=== PATIENT | male | born 1960 | race Caucasian/White ===

== ENCOUNTER 2017-02-10 21:06 | Inpatient (IN) ==
[2017-02-10 22:42] LABS: MANUAL DIFF NEEDED? NO
[2017-02-10 22:58] LABS: BASO% 0.1 % (0.0-0.8); HEMOGLOBIN 9.8 g/dL (14.0-18.0); IMM GRAN# 0.03 X1000 (0.0-0.04); IMM GRAN% 0.3 % (0.0-0.5); LYMPH# 0.66 X1000 (1.2-3.4); LYMPH% 7.3 % (20.5-51.1); MCHC 36.3 g/dL (33-37); MCV 99.3 FL (81-99); MONO% 12.2 % (1.7-9.3); MPV 9.6 FL (7.4-10.4); NEUT% 80.1 % (42.2-75.2); PLT 173 X1000 (130-400); RBC 2.72 XMIL (4.7-6.1)
[2017-02-10 23:08] LABS: ALBUMIN 3.7 g/dL (3.5-5.0); POTASSIUM 4.2 mmol/L (3.5-5.1); TOTAL BILIRUBIN 1.29 mg/dL (0.20-1.00); TOTAL PROTEIN 8.4 g/dL (6.3-8.3)
[2017-02-10] MEDS ORDERED: MORPHINE IV ONE (23:45)
[2017-02-10] MEDS ORDERED: NS 1,000 ML IV ONE (23:45)
[2017-02-10] MEDS ORDERED: VANCOMYCIN 1 GM/NS 1 GM/250 ML IVPB IV ONE (23:53)
[2017-02-11] MEDS ORDERED: ZOSYN 3.375 GM/NS 3.375 GM/50 ML IVPB IV ONE (00:46)
[2017-02-11] MEDS ORDERED: GENTAMICIN 0.3% OPH DROPS BOTH EYES ONE (00:51)
--- NOTE | 2017-02-11 00:53 | PROVIDER DOCUMENTATION ---
HPI-Rash/Wound/ReCheck - General Chief Complaint: Extremity Pain Stated Complaint: FOOT PAIN Time Seen by Provider: 02/10/17 22:45 Source: patient Allergies/Adverse Reactions: Allergies Allergy/AdvReac Type Severity Reaction Status Date / Time No Known Allergies Allergy Verified 02/11/17 00:04 Home Medications: Home Medication List Medication Instructions Recorded Confirmed Last Taken Type NK [No Home Medications] 02/11/17 02/11/17 Unknown History - History of Present Illness-Dermatology Nature of Presenting Problem: PT STS HE IS HOMELESS AND HAS HAD NO MEDICAL CARE IN YEARS. C/O GETTING HIS FEET WET A COUPLE OF DAYS AGO AND NOT REMOVING HIS SHOES FOR 2 DAYS, CAUSING REDNESS AND SEVERE PAIN TO HIS FEET. ALSO STS HE HAS HAD DIARRHEA FOR 3 DAYS. DENIES N/V, FEVER, OR SOB. ALSO COMPLAINS OF RIGHT EYE "MATTING CLOSED" WITH DISCHARGE. Location: reports: feet Quality: reports: painful Severity: reports: severe Onset/Duration: reports: 3 days ago Timing: reports: still present, getting worse Context/Associated Symptoms: reports: edema, lesion, tender area. denies: fever Identifiable cause?: Yes Locality of Occurance: Other (OUTDOORS) Similar Symptoms Previously?: No Recently seen or treated by another doctor?: No Review of Systems - Adult - REVIEW OF SYSTEMS - ADULT Constitutional: reports: no symptoms reported. denies: chills, fever, fatique Eyes: reports: see HPI, discharge, redness. denies: blurred vision, double vision Ears, Nose, Mouth & Throat: reports: no symptoms reported. denies: tinnitus, sinus problem Cardiovascular: reports: no symptoms reported. denies: chest pain, palpitations , syncope Respiratory: reports: no symptoms reported. denies: cough, shortness of breath Gastrointestinal: reports: see HPI, diarrhea. denies: abdominal pain, hematemesis, constipation, nausea, rectal bleeding, vomiting Genitourinary: reports: no symptoms reported. denies: dysuria, frequency, flank pain, hematuria, urgency Musculoskeletal: reports: no symptoms reported. denies: muscle aches, muscle weakness Integumentary: reports: see HPI, rash, skin sores/ulcer Neurological: reports: no symptoms reported. denies: dizziness/vertigo, headache/migraines, loss of balance, syncope Psychiatric: reports: no symptoms reported Endocrine: reports: no symptoms reported Hematologic/Lymphatic: reports: no symptoms reported Allergic/Immunologic: reports: no symptoms reported All Other Systems: Reviewed and Negative Past History - Adult - PAST MEDICAL HISTORY-ADULT Review of Records: reports: Old Records Reviewed, Nursing Assessment Review, Medications Reviewed, Social history reviewed & non-contributory. Major Childhood Illnesses: reports: denies history Cardiovascular: reports: denies history Respiratory: reports: denies history Gastrointestinal: reports: denies history Genitourinary: reports: denies history Musculoskeletal: reports: denies history Neurological: reports: denies history Psychiatric: reports: other (ETOH abuse) Endocrine/Immune: reports: denies history Other Conditions: reports: denies history - PRIOR SURGERIES/PROCEDURES Surgical/Procedure History: reports: other (eye sx as a child ) - PRIOR HOSPITALIZATIONS Prior Hospitalizations: reports: none - IMMUNIZATION STATUS Childhood Immunizations: UTD Flu Vaccine: NUTD - FAMILY HISTORY Family History: reviewed, not pertinent - SOCIAL HISTORY Smoking: denies Physical Exam-General - PHYSICAL EXAM-ADULT Initial Vital Signs Reviewed: Yes - CONSTITUTIONAL General Appearance: appears well, alert, mild distress - EYES Eyes: PERRL/EOMI, pink conjunctivae (BILATERALLY), conjuctival exudate (THICK WHITE FROM RT EYE) - HEAD, EARS, NOSE, MOUTH & THROAT HENMT: normocephalic/atraumatic, moist mucous membranes, normal ENT inspection - NECK Neck: non-tender, full range of motion, supple, normal inspection - RESPIRATORY Respiratory: chest non-tender, lungs clear, normal breath sounds, no pleuratic chest pain, no respiratory distress, no accessory muscle use. negative: crackles, wheezing - CARDIOVASCULAR Cardiovascular: normal peripheral pulses, regular rate, rhythm - GASTROINTESTINAL (ABDOMEN) Abdominal Exam: normal bowel sounds, non tender, soft, no organomegaly, no pulsatile mass. negative: distended, guarding, tenderness - LYMPHATIC Lymphatic: no adenopathy - MUSCULOSKELETAL Extremity: normal range of motion, non-tender Peripheral Pulses: dorsalis-pedis (R): 2+, dorsalis-pedis (L): 2+ - SKIN Integumentary: normal color, normal turgor, warm/dry, erythema (BILATERAL FEET) , tenderness (BILATERAL FEET) - NEUROLOGIC Neurologic: grossly normal, no motor/sensory deficits - PSYCHIATRIC Psych/Mental Status: normal mood/affect, oriented x 3, disheveled Progress - PLAN OF CARE/RESULTS Progress/Plan/Lab Results: Vital Signs - 8 hr 02/10/17 21:08 02/11/17 00:25 Temperature 99.5 F 98.5 F Pulse Rate 118 H 96 H Respiratory Rate 16 20 Blood Pressure 156/102 125/77 O2 Sat by Pulse Oximetry 100 100 Laboratory Results - last 24 hr 02/10/17 02/10/17 02/10/17 22:23 22:23 22:23 WBC 9.03 RBC 2.72 L Hgb 9.8 L Hct 27.0 L MCV 99.3 H MCH 36.0 H MCHC 36.3 RDW Std Deviation 11.0 L Plt Count 173 MPV 9.6 Immature Gran % (Auto) 0.3 Neut % (Auto) 80.1 H Lymph % (Auto) 7.3 L [place] % (Auto) 12.2 H Eos % (Auto) 0.0 Baso % (Auto) 0.1 Immature Gran # (Auto) 0.03 Neut # (Auto) 7.23 H Lymph # (Auto) 0.66 L [place] # (Auto) 1.10 H Eos # (Auto) 0.00 Baso # (Auto) 0.01 Sodium 125 L Potassium 4.2 Chloride 87 L Carbon Dioxide 22 L Anion Gap 16 BUN 15 Creatinine 1.6 H Estimated GFR/1.73 m2 45 BUN/Creatinine Ratio 9 Glucose 94 Calculated Osmolality 252 Calcium 9.0 Total Bilirubin 1.29 H AST 50 H ALT 36 Alkaline Phosphatase 111 Total Protein 8.4 H Albumin 3.7 Globulin 4.7 Albumin/Globulin Ratio 0.8 Plasma Lactate 2.0 Orders Category Date Time Status CHEST-1 VIEW [RAD] Stat Exams 02/10/17 23:50 Taken BLOOD CULTURE [BLDCUL] Stat Lab 02/10/17 22:23 Results CBC WITH ELECTRONIC DIFF [HEME] Stat Lab 02/10/17 22:23 Completed COMPREHENSIVE METABOLIC PANEL [CHEM] Stat Lab 02/10/17 22:23 Completed LACTATE, PLASMA [CHEM] Stat Lab 02/10/17 22:23 Completed 0.9% Sodium Chloride Inj [Ns] 1,000 ml Med 02/10/17 23:45 Active IV 125 mls/hr Gentamicin 0.3% Oph Drops Med 02/11/17 00:51 Discontinued 1 ml BOTH EYES NOW ONE Morphine Med 02/10/17 23:45 Discontinued 4 mg IV NOW ONE Piperacil/Tazobact 3.375 gm/Ns [Zosyn 3.375 gm/Ns] Med 02/11/17 00:46 Discontinued 3.375 gm in 50 ml IV NOW Vancomycin 1 gm/Ns Med 02/10/17 23:53 Discontinued 1 gm in 250 ml IV NOW Result Diagrams: 02/10/17 22:23 02/10/17 22:23 - REASSESSMENT Reassessment #1 Time Reassessed: 00:30 (DISCUSSED PT WITH DR. SNYDER WHO AGREES WITH DECISION TO CONSULT HOSPITALIST FOR ADMISSION.) Status: unchanged - CONSULTS/PCP/HOSPITALIST Notification #1 *Consult/PCP/Hospitalist*: DR. HADLEY Time Discussed: 00:50 Reason/Comments: DISCUSSED ADMISSION FOR HYPONATREMIA, CELLULITIS, ANEMIA Consult Disposition: Will see in ED Departure - Departure Date of Disposition Decision: 02/11/17 Time of Disposition Decision: 00:50 DIAGNOSIS: Hyponatremia Cellulitis Qualifiers: Site of cellulitis: extremity Site of cellulitis of extremity: lower extremity Laterality: unspecified laterality Qualified Code(s): L03.119 - Cellulitis of unspecified part of limb Disposition: ADMITTED INPATIENT 09 Certified Medical Emergency: Emergent Condition: Stable Referrals and Follow-Ups: None,PCP [Primary Care Provider] - - Critical Care Note This patient required my direct & personal management of CC.: No Attestation - Physician/ JOSIAH Attestation Patient care was provided by Advanced Practice Provider:: Yes Advanced Practice Provider:: Bhargavi Byrd Advanced Practice Provider documentation review:: The Mid-level provider documentation, treatment plan and medical decision making was reviewed by the physician who agrees with all treatment and medical decision making by the MLP.
[2017-02-11] MEDS ORDERED: ZOFRAN IV PRN (03:19)
[2017-02-11] MEDS ORDERED: VANCOMYCIN IV PER PHARMACY MISC SCH (03:19)
[2017-02-11] MEDS ORDERED: TYLENOL PO PRN (03:19)
[2017-02-11] MEDS ORDERED: MORPHINE IV PRN (03:19)
[2017-02-11] MEDS ORDERED: VANCOMYCIN 500 MG/NS 500 MG/100 ML IVPB IV ONE (04:00)
[2017-02-11] MEDS ORDERED: ROCEPHIN 1 GM/NS 1 GM/50 ML IVPB IV SCH (04:00)
--- NOTE | 2017-02-11 04:25 | HISTORY AND PHYSICAL ---
PRIMARY CARE PHYSICIAN: None. CHIEF COMPLAINT: Bilateral feet swelling and tenderness and eye redness. HISTORY OF PRESENTING ILLNESS: A 56-year-old, homeless male who apparently states that he got some new shoes or so and put them on without socks and his feet were hurting. He subsequently had come to the emergency department where his feet had moderate skin breakdown and seemed infected. He also had some redness in both eyes, but greater in the right eye. He was evaluated and his symptoms were consistent with cellulitis on his feet and due to his presenting symptoms, it was thought that he would need hospitalization for further management. At the time of my examination, he denied any headache, fever, chills, chest pain, shortness of breath, hemoptysis or weight changes. States that his feet are hurting. PAST MEDICAL HISTORY: None. PAST SURGICAL HISTORY: Left eye surgery. ALLERGIES: No known drug allergies. CURRENT MEDICATIONS: None. SOCIAL HISTORY: He denies any smoking. Admits to social alcohol use. Denies any illicit drug use. FAMILY HISTORY: No history of coronary disease. REVIEW OF SYSTEMS: Twelve point review of systems is as listed in the HPI. Other systems negative. PHYSICAL EXAMINATION: GENERAL: Moderately disheveled male. He is without any respiratory distress. VITAL SIGNS: Temperature 99.5 degrees, pulse 118, respirations 16, blood pressure 156/102. Saturating 100%. HEENT: Atraumatic, normocephalic. Right eye has moderate erythema. NECK: Supple. CHEST: Clear to auscultation. CARDIOVASCULAR: Regular rate and rhythm. ABDOMEN: Soft. Positive bowel sounds. EXTREMITY: There is some mild edema in bilateral lower extremities and also erythema. : No bladder distention. SKIN: Warm. LABORATORIES AND STUDIES: Sodium 125, potassium 4.2, chloride 87, CO2 22, BUN is 15, creatinine 1.6, glucose is 94. WBC is 9.03, hemoglobin 9.8, hematocrit 27.0, platelets 173 ,000. ASSESSMENT: 1. A 56-year-old male, basically homeless had put on a pair of shoes without socks or so. It seems that he has moderate skin breakdown on his feet and there is moderate erythema consistent with cellulitis. The patient will need hospitalization for further management. 2. Bilateral feet cellulitis. 3. Right eye conjunctivitis. 4. Hyponatremia. 5. Anemia, unspecified. PLAN: 1. We will admit patient to medical floor with telemetry. 2. We will check blood cultures. Start patient on IV antibiotics. 3. We will give the patient appropriate eyedrops. 4. Continue with IV fluid hydration. 5. We will monitor his renal function closely also. 6. We will do iron studies. 7. We will put patient on DVT prophylaxis with SCDs if he can tolerate it. 8. We will continue to follow and reassess. cc: Cresencio Cervantes MD MTDD
[2017-02-11 06:45] LABS: IRON SATURATION 27 %; TIBC 160 ug/dL; TOTAL IRON 43 ug/dL (53-167); UNBOUND IRON 117 ug/dL (112-346)
--- NOTE | 2017-02-11 07:19 | Diag Imaging Result Doc PS360 ---
EXAM: CHEST-1 VIEW HISTORY: ANEMIA, INFECTION TECHNIQUE: Erect AP portable at 0000 COMMENT: There are granulomata in the left upper lobe. There is no evidence of acute cardiac or pulmonary disease. Compared to 07/12/2015 there is been no significant change. IMPRESSION: No acute disease. Electronically signed by Tanvir Lazaro 02/11/2017 7:17 AM
[2017-02-11] MEDS ORDERED: CALMOSEPTINE OINTMENT TOP PRN (08:21)
[2017-02-11] MEDS: GENTAMICIN 0.3% OPH DROPS BOTH EYES SCH ×2 (08:51→21:51)
[2017-02-11] MEDS: NS 1,000 ML IV SCH (08:51)
--- NOTE | 2017-02-11 10:26 | EKG Report ---
Test Performed on : 02/11/2017 07:29:07 AM Test Reason : Afib vs ST Blood Pressure : / mmHG Vent. Rate : 088 BPM Atrial Rate : 110 BPM P-R Int : 000 ms QRS Dur : 082 ms QT Int : 374 ms P-R-T Axes : 000 070 067 degrees QTc Int : 452 ms Atrial fibrillation. with premature ventricular or aberrantly conducted complexes. Abnormal ECG When compared with ECG of 12-JUL-2015 18:29, Atrial fibrillation. has replaced Sinus rhythm. Confirmed by Jos Garay MD ([id number]) on 02/11/2017 1:03:03 PM
[2017-02-11] MEDS ORDERED: CARDIZEM 100 MG/NS 100 MG/100 ML IVPB IV SCH (13:47)
[2017-02-11] MEDS: MAXIPIME 1 GM/NS 1 GM/50 ML IVPB IV SCH (14:37)
--- NOTE | 2017-02-11 16:31 | CONSULTATION ---
DATE OF CONSULTATION: 02/11/2017 CARDIOLOGY CONSULT NOTE: IMPRESSION: 1. Atrial fibrillation, duration unknown. Patient asymptomatic from a cardiovascular standpoint. 2. Currently admitted with cellulitis of both feet and right eye. 3. Regular daily alcohol use. Quantity vague. 4. Homeless. 5. Anemia, etiology not clear. 6. Hyponatremia. RECOMMENDATIONS: 1. Utilize beta-samreen for rate control. 2. Echocardiography. 3. Check TSH. 4. Evaluate anemia. HISTORY: This 56-year-old, white male with no prior cardiovascular history was admitted to the emergency room for management of cellulitis. He is unaware of any previous cardiac problems. He is homeless. He drinks a vague amount of beer daily. Recently acquired some shoes that perhaps did not fit well. He developed bilateral foot pain and redness. He also complained of redness in his right eye. He came to the emergency room and was felt to have cellulitis. He has been admitted and started on intravenous antibiotics. ECG demonstrated atrial fibrillation. He denies any palpitations, chest discomfort, or dyspnea. PAST MEDICAL HISTORY: 1. Negative for hypertension, negative for diabetes, and negative for hypercholesterolemia. 2. Unspecified left eye surgery related to traumatic injury. ALLERGIES: No known drug allergies. MEDICATIONS: He is on no medications prior to admission. SOCIAL HISTORY: He is homeless. He does not smoke. He drinks a vague amount of beer on a daily basis. FAMILY HISTORY: Negative for coronary disease. REVIEW OF SYSTEMS: Pulmonary: Negative. Gastrointestinal: Negative. Constitutional: Negative. Remaining review of systems negative/noncontributory with 14 total systems reviewed. PHYSICAL EXAMINATION: General Appearance: A middle-aged male in no distress. Vital Signs: As recorded are stable. HEENT Exam: Atraumatic, normocephalic. Mucous membranes moist. Neck: Supple without jugular venous distention. No carotid bruits. Chest: Clear to auscultation. Cardiac Exam: Reveals an irregular rate and rhythm without appreciable murmur or gallop. Abdomen: Soft, nontender. Bowel sounds are normal. Extremities: Without edema. There is striking erythema of both feet. Neurologic Exam: Reveals him to be alert and fully oriented. Speech is fluent. Moves all 4 extremities equally well. Skin: Warm and dry. DIAGNOSTIC DATA: ECG demonstrates atrial fibrillation with occasional premature ventricular aberrantly conducted complex. cc: Ty Flynn MD
[2017-02-11] MEDS ORDERED: LIBRIUM PO ONE (17:30)
[2017-02-11] MEDS: LOPRESSOR PO SCH (21:51)
[2017-02-12] MEDS: NS 1,000 ML IV SCH ×3 (00:04→15:11)
[2017-02-12] MEDS: MAXIPIME 1 GM/NS 1 GM/50 ML IVPB IV SCH ×2 (02:29→14:20)
[2017-02-12] MEDS ORDERED: VANCOMYCIN 1,400 MG in NS 250 ML IV SCH (04:00)
[2017-02-12] MEDS: LOPRESSOR PO SCH ×3 (05:31→20:11)
[2017-02-12 06:09] LABS: MANUAL DIFF NEEDED? NO
[2017-02-12 06:26] LABS: BASO% 0.2 % (0.0-0.8); EOS# 0.06 X1000 (0.0-0.7); EOS% 1.2 % (0.0-10.0); HEMATOCRIT 23.5 % (42.0-52.0); HEMOGLOBIN 8.2 g/dL (14.0-18.0); LYMPH# 0.86 X1000 (1.2-3.4); LYMPH% 17.7 % (20.5-51.1); MCH 35.3 PG (27-31); MCHC 34.9 g/dL (33-37); MCV 101.3 FL (81-99); MONO# 0.64 X1000 (0.11-0.59); MONO% 13.1 % (1.7-9.3); MPV 9.5 FL (7.4-10.4); NEUT% 67.8 % (42.2-75.2); PLT 176 X1000 (130-400); RBC 2.32 XMIL (4.7-6.1)
[2017-02-12 06:30] LABS: AGAP 11; BUN 10 mg/dL (8-22); CALCIUM 8.1 mg/dL (8.8-10.2); CHLORIDE 97 mmol/L (98-107); COSMO 259; MAGNESIUM 1.2 mg/dL (1.5-2.7); POTASSIUM 3.1 mmol/L (3.5-5.1); SODIUM 130 mmol/L (136-145); TCO2 22 mmol/L (25-35)
--- NOTE | 2017-02-12 07:01 | ECHO REPORT ---
ORDER DATE: 02/11/2017 INTERPRETING PHYSICIAN: Dr. Aguiar REQUESTING PHYSICIAN: Dr. Leger. CLINICAL INDICATIONS: A 56-year-old male with new onset atrial fibrillation. M-MODE MEASUREMENTS: Right ventricle: 2.8 cm. Left ventricle end diastole: 4.5 cm. Left ventricle end systole: 3.2 cm. Posterior wall: 0.9 cm. Interventricular septum: 0.9 cm. Left atrium: 4.7 cm. Aortic root: 3.1 cm. SUMMARY OF 2-DIMENSIONAL IMAGING: The patient is in atrial fibrillation. The global left ventricular systolic function appears to be normal in the range of 55-60%. The left atrium is probably moderately enlarged. The aortic valve has 3 cusps. Color flow mapping shows a mild degree of regurgitation. The tricuspid valve looks normal. Color flow mapping indicates a mild degree of regurgitation. The inferior vena cava is not dilated. Pulmonary pressure estimated at 26 mmHg. The pulmonic valve looks grossly normal. Color flow mapping indicates a mild degree of regurgitation. The mitral valve looks normal. Color flow mapping indicates a mild degree of regurgitation. Pulse wave Doppler of mitral inflow shows a single filling wave. The patient is in atrial fibrillation. The pulse wave Doppler of pulmonary venous flow is normal. Tissue Doppler of septal and lateral mitral annulus averages 12 cm. Diastolic function is probably normal. There is no pericardial effusion, masses or thrombus. IMPRESSION: In summary, this study shows: 1. Overall well preserved left ventricular systolic function. 2. Mild degree of mitral, aortic, tricuspid and pulmonic regurgitation. 3. Mild to moderately enlarged left atrium. 4. No pulmonary hypertension. 5. Diastolic function is probably normal. Clinical correlation recommended. cc: MD Lawrence Cosby MD
[2017-02-12] MEDS: GENTAMICIN 0.3% OPH DROPS BOTH EYES SCH ×2 (08:00→20:12)
[2017-02-12] MEDS: LIBRIUM PO SCH ×3 (08:14→17:35)
[2017-02-12] MEDS: POTASSIUM CHLORIDE 20 MEQ/SWI 20 MEQ/100 ML IVPB IV SCH ×2 (14:53→16:05)
--- NOTE | 2017-02-12 15:38 | PROGRESS NOTE ---
DATE: 02/12/2017 SUBJECTIVE: Patient reports that mild swelling and reddening in both legs are getting better. Denies any fever, chills. OBJECTIVE: Vital Signs: Temperature 98.5 degrees, heart rate 96, respiratory rate 20, blood pressure 113/76, O2 saturation 100% on room air. General Examination: This is a 56-year-old male lying in bed in no acute distress. HEENT: Head is normocephalic, atraumatic. Marked inflammation on the right conjunctivae. Mucous membranes moist. Neck: Supple. No JVD noted. No carotid bruits. No lymphadenopathy. No thyromegaly. Cardiovascular: S1, S2 heard. No murmurs, gallops, or rubs. Regular rate and regular rate and rhythm. Respiratory: Clear bilaterally to auscultation. No work of breathing or using accessory muscles. Abdomen: Soft, nontender to palpation. Bowel sounds present. No organomegaly. Extremities: Some mild edema in bilateral lower extremities and also edema in both legs. Neurologic: Patient moves 4 extremities. Alert and oriented. ASSESSMENT AND PLAN: 1. Bilateral feet cellulitis. Patient is on cefepime and vancomycin. Will continue with the same management. The patient responded to the therapy. 2. Right eye conjunctivitis. Patient is on gentamicin drops and that condition is getting better. 3. Hyponatremia. Sodium is still low and this probably related to chronic alcohol consumption. 4. Anemia not specified. Monitoring this patient closely in the intensive care unit. 5. Will keep checking CBC daily. cc: Lawrence Webster MD
--- NOTE | 2017-02-12 16:18 | PROGRESS NOTE ---
DATE: 02/12/2017 SUBJECTIVE: Patient continues without chest discomfort, dyspnea or palpitations. OBJECTIVE: Vital Signs: Blood pressure 113/76, heart rate 96 and irregular with ECG monitor showing atrial fibrillation. Oxygen saturation 100% on room air. Chest: Clear to auscultation. Cardiac Exam: Reveals an irregular rate and rhythm without appreciable murmur or gallop. There is no evidence of peripheral edema. Cellulitis on both feet is retreating. LAB DATA: Is remarkable for TSH of 0.92. Sodium is increased to 130, hematocrit 23.5. IMPRESSION: 1. Atrial fibrillation, asymptomatic. Rate controlled. 2. Significant anemia. 3. Difficult social situation with patient being homeless. 4. Regular daily alcohol use of vague quantities. 5. Hyponatremia. RECOMMENDATIONS: 1. Continue beta-samreen for rate control. 2. Anticoagulation problematic in light of patient's significant anemia and social situation. cc: Ty Flynn MD
[2017-02-12] MEDS: VANCOMYCIN 1,400 MG in NS 250 ML IV SCH (21:00)
[2017-02-12] MEDS: VIGAMOX 0.5% OPH SOLN BOTH EYES SCH (23:21)
[2017-02-12] MEDS: ATIVAN IV PRN (23:22)
[2017-02-13] MEDS: MAXIPIME 1 GM/NS 1 GM/50 ML IVPB IV SCH ×2 (02:51→14:40)
[2017-02-13] MEDS: LOPRESSOR PO SCH ×3 (05:35→21:54)
[2017-02-13] MEDS: ATIVAN IV PRN ×2 (06:01→23:43)
[2017-02-13 06:22] LABS: MANUAL DIFF NEEDED? NO
[2017-02-13 06:33] LABS: BASO% 0.6 % (0.0-0.8); EOS# 0.09 X1000 (0.0-0.7); EOS% 1.9 % (0.0-10.0); HEMOGLOBIN 8.2 g/dL (14.0-18.0); LYMPH# 0.76 X1000 (1.2-3.4); LYMPH% 15.9 % (20.5-51.1); MCH 35.2 PG (27-31); MCHC 34.2 g/dL (33-37); MONO# 0.64 X1000 (0.11-0.59); MONO% 13.4 % (1.7-9.3); MPV 9.7 FL (7.4-10.4); NEUT% 68.2 % (42.2-75.2); PLT 190 X1000 (130-400); RBC 2.33 XMIL (4.7-6.1)
[2017-02-13 06:34] LABS: AGAP 13; BUN 8 mg/dL (8-22); CALCIUM 7.9 mg/dL (8.8-10.2); CHLORIDE 98 mmol/L (98-107); COSMO 266; POTASSIUM 3.1 mmol/L (3.5-5.1); SODIUM 134 mmol/L (136-145); TCO2 23 mmol/L (25-35)
[2017-02-13] MEDS: VIGAMOX 0.5% OPH SOLN BOTH EYES SCH ×3 (09:35→21:54)
[2017-02-13] MEDS: LIBRIUM PO SCH ×3 (12:27→16:08)
[2017-02-13] MEDS: NS 1,000 ML IV SCH ×2 (12:31→19:20)
--- NOTE | 2017-02-13 14:02 | PROGRESS NOTE ---
DATE: 02/13/2017 SUBJECTIVE: Patient reports that the swelling and reddening in both legs are getting definitely much better. Also, the itching and redness in the right eye is also getting better as well. OBJECTIVE: Vital signs: Temperature 98.4 degrees, heart rate 85, respiratory rate 20, blood pressure 139/86. O2 saturation 100% on room air. General: This is a 56-year-old male, lying in bed, in no acute distress. HEENT: Head is atraumatic anicteric sclerae. Mucous membranes moist. Neck: Supple. No JVD noted. No carotid bruits. No lymphadenopathy. No thyromegaly. Cardiovascular: S1 and S2 heard. No murmurs, gallops, or rubs. Regular rate and rhythm. Respiratory: Clear bilaterally to auscultation. No work of breathing or using accessory muscles. Abdomen: Soft, nontender to palpation. Bowel sounds present. No organomegaly. Extremities: Mild edema in both lower extremities as well as edema that is getting better. Neurological: Patient moves 4 extremities. Alert and oriented x 3. ASSESSMENT AND PLAN: 1. Bilateral feet cellulitis. The patient was on cefepime and vancomycin. Continue with the same management. 2. PICC line. Right eye conjunctivitis. We will continue with Vigamox . Patient responding to the therapy. 3. Hyponatremia. The sodium today is 134, it is almost back to normal. We will continue with the same management. 4. Hypokalemia. We will supplement this. 5. Anemia of chronic disease. We will monitor this patient closely in the hospital and we will keep checking complete blood count . cc: Lawrence Webster MD
[2017-02-13] MEDS: VANCOMYCIN 1,400 MG in NS 250 ML IV SCH ×2 (16:35→21:53)
--- NOTE | 2017-02-13 18:07 | PROGRESS NOTE ---
DATE: 02/13/2017 SUBJECTIVE: Patient continues without cardiovascular symptoms. OBJECTIVE: Vital Signs: Blood pressure 139/86, heart rate 85 and irregular, oxygen saturation 100% on room air. Neck: There is no significant jugular venous distention. Chest: Clear to auscultation. Cardiac Exam: Reveals an irregular rate and rhythm without appreciable murmur or gallop. Extremities: Demonstrate progressive improvement in cellulitis. IMPRESSIONS: 1. Atrial fibrillation, asymptomatic. Rate controlled. 2. Anemia. 3. Difficult social situation with patient being homeless. 4. Regular daily alcohol use of vague quantities. 5. Hyponatremia, improving. RECOMMENDATIONS: 1. Continue beta-samreen for rate control. 2. Anticoagulation problematic in light of patient's significant anemia and social situation. For now will utilize aspirin daily. 3. Social history to be addressed. Potentially patient may be able to get Medicaid. 4. Patient strongly advised to discontinue alcohol use. 5. Will see patient further on an as needed basis. cc: Ty Flynn MD
[2017-02-14] MEDS: NS 1,000 ML IV SCH ×2 (00:26→12:06)
[2017-02-14] MEDS: MAXIPIME 1 GM/NS 1 GM/50 ML IVPB IV SCH (02:06)
[2017-02-14] MEDS: LOPRESSOR PO SCH ×2 (05:47→13:31)
[2017-02-14 06:06] VITALS: BP 144/72
[2017-02-14] MEDS: LIBRIUM PO SCH ×2 (08:28→13:31)
[2017-02-14] MEDS: VIGAMOX 0.5% OPH SOLN BOTH EYES SCH ×2 (08:29→13:32)
[2017-02-14 09:40] LABS: MANUAL DIFF NEEDED? NO
[2017-02-14 09:47] LABS: BASO% 0.6 % (0.0-0.8); EOS# 0.11 X1000 (0.0-0.7); EOS% 1.7 % (0.0-10.0); HEMATOCRIT 24.6 % (42.0-52.0); HEMOGLOBIN 8.3 g/dL (14.0-18.0); IMM GRAN# 0.02 X1000 (0.0-0.04); IMM GRAN% 0.3 % (0.0-0.5); LYMPH# 0.99 X1000 (1.2-3.4); LYMPH% 15.5 % (20.5-51.1); MCH 35.2 PG (27-31); MCHC 33.7 g/dL (33-37); MCV 104.2 FL (81-99); MONO# 0.78 X1000 (0.11-0.59); MONO% 12.2 % (1.7-9.3); MPV 9.7 FL (7.4-10.4); NEUT% 69.7 % (42.2-75.2); PLT 226 X1000 (130-400); RBC 2.36 XMIL (4.7-6.1)
[2017-02-14 10:20] LABS: AGAP 12; BUN 8 mg/dL (8-22); CALCIUM 8.1 mg/dL (8.8-10.2); CHLORIDE 99 mmol/L (98-107); COSMO 272; POTASSIUM 3.1 mmol/L (3.5-5.1); SODIUM 137 mmol/L (136-145); TCO2 26 mmol/L (25-35)
[2017-02-14] MEDS ORDERED: KLOR-CON PO ONE (11:48)
[2017-02-14] MEDS ORDERED: MAGNESIUM SULFATE 2 GM/S.W.I. 2 GM/50 ML IVPB IV ONE (12:00)
--- NOTE | 2017-02-15 11:06 | DISCHARGE SUMMARY ---
ADMISSION DATE: 02/11/2017 DISCHARGE DATE: 02/14/2017 CONSULTATIONS: Dr. Ty Flynn with cardiology. PERTINENT PROCEDURES: Echocardiogram which showed an EF of 55-60%. DISCHARGE DIAGNOSES: 1. Bilateral lower extremity cellulitis in the feet. The patient will continue with oral antibiotics. 2. Right eye conjunctivitis. Continue on Vigamox. 3. Hyponatremia, resolved. 4. Hypokalemia, improved with supplementation. 5. Hypomagnesemia. The patient is receiving intravenous magnesium at this time. 6. Anemia of chronic disease, stable. 7. Atrial fibrillation, rate controlled. The patient will continue on beta samreen. As far as anticoagulation, this is problematic due to the patient's social situations with being homeless. Per cardiology, just resume aspirin daily. 8. Alcohol use of unknown quantities, regularly on a daily basis, stable. 9. Homelessness. financial services internship has been consulted. The patient is going to be at [facility] for 1 month for his home medications. He has also been given information on homeless shelters as well as [facility] He has been strongly advised to discontinue his alcohol use and take all medications as prescribed, and continue with followup. HOSPITAL COURSE: Briefly, Mr. Atkinson is a 56-year-old male who states he has no past medical history. States that he got some new shoes, put them on without socks, and his feet began to hurt. He came to the ED where he had moderate skin breakdown and seemed to be infected. He also had redness in both eyes. It was greater in the right eye. He was evaluated and his symptoms were consistent with cellulitis in his feet. He was brought in and put on IV antibiotics as well as appropriate eyedrops for his conjunctivitis. Cardiology was consulted in reference to his atrial fibrillation. He was asymptomatic. He was initiated on a beta-samreen for rate control and aspirin for anticoagulation. The patient does have a social situation where we got social service technician involved to help with [facility] getting him his medications as well as referring him to different homeless shelters. He does drink a vague amount of alcohol daily. He has been educated about alcohol abuse and to stop drinking. The patient was monitored closely for any signs and symptoms of withdrawal. He has remained stable. He did have some episodes of hypomagnesemia as well as hypokalemia and hyponatremia. His hyponatremia has since resolved. His magnesium as well as potassium is being treated today. Then the patient will be discharged again with [facility] and information for social service technician for homeless shelters. Vital signs at time of his discharge, temperature is 98.1 degrees, heart rate 82, respirations 19, blood pressure 144/ 72, O2 is 100% on room air. DISCHARGE DIET: Healthy heart. DISCHARGE MEDICATIONS: 1. Augmentin 875/125 p.o. b.i.d. for 10 days. 2. Lopressor 25 mg p.o. q.8 hours. 3. Vigamox ophthalmic solution in both eyes t.i.d. 4. Aspirin 81 mg p.o. daily. FOLLOWUP: The patient is being discharged today with [facility] as well as information provided by social service technician for homeless shelters. Again, the patient will need to follow up with a primary care physician in 1 week from a list that has been provided to him, as well as cardiology. Patient can return to the ED for any worsening of symptoms. Discharge time of 35 minutes. Dictated by MORENITA White for Lawrence Webster MD cc: Lawrence Webster MD [email or web address]
== END 2017-02-14 14:34 | disposition home or self-care (01) ==
LOC: ED 21:06 → SUATTDRO 02-11 02:35 → 3N 02-11 02:35
PROVIDERS: ATTEND Internal Medicine